=== PATIENT | male | born 1995 | race Caucasian/White ===

== ENCOUNTER 2017-01-07 07:19 | Emergency (ER) | payer OTHER ==
[2017-01-07 07:30] VITALS: BP 117/66
--- NOTE | 2017-01-07 08:27 | UC ---
GI Bleed HPI - HPI Summary HPI Summary: 21 yo M c/o vomiting blood twice, once on 01/04/17 and once last pm. Pt states he has had a cold and is congested. Denies abd pain. States it was bright red blood,a small amount in the vomit. States it was darker in the vomit last pm. Admits he drank alcohol on 01/04/17 and vomited the blood later. Has not had alcohol since. States he drinks alcohol approx 3 times per week, has never vomited blood before. No hx GERD. Did not realize that he has very enlarged tonsils but states he has been congested and had some trouble swallowing. Thinks he has had mono in the past. Denies epistaxis, or any blood in sputum. Not on anticoagulants. No hx bleeding disorder in himself or family members. States he has moved his bowels normally the past few days, and stool is normal color. He denies abd pain. - History Of Current Complaint Chief Complaint: UCGeneralIllness Stated Complaint: BLOOD IN VOMIT Time Seen by Provider: 01/07/17 08:06 Hx Obtained From: Patient Onset/Duration: Gradual Onset, Lasting Days, Still Present Timing: Intermittent Episodes Lasting: Severity: Hematemesis Severity Initially: Mild Severity Currently: None Pain Intensity: 0 Pain Scale Used: 0-10 Numeric Associated Pain: None Aggravating Factor(s): Other - nothing Alleviating Factor(s): Other - nothing Associated Signs And Symptoms: Positive: Other - sweats - Risk Factors GI Bleed Risk Factors: ETOH Abuse - use of ETOH, not abuse by pt's history - Allergies/Home medications Allergies/Adverse Reactions: Allergies Allergy/AdvReac Type Severity Reaction Status Date / Time No Known Allergies Allergy Verified 01/07/17 07:30 PMH/Surg Hx/FS Hx/Imm Hx Previously Healthy: Yes Endocrine History Of: Denies: Diabetes Cardiovascular History Of: Denies: Hypertension, Pacemaker/ICD GI/ History Of: Denies: Renal Disease - Surgical History Surgical History: None - Family History Known Family History: Negative: Cardiac Disease, Hypertension, Diabetes, Blood Disorder - Social History Occupation: Student Alcohol Use: Weekly Substance Use Type: None, Marijuana Substance Use Comment - Amount & Last Used: twice weekly- last used last week Smoking Status (MU): Never Smoked Tobacco Review of Systems Constitutional: Other - sweats ENT: Nasal Discharge, Other - congestion, no epistaxis Respiratory: Negative Cardiovascular: Negative Motor: Negative Musculoskeletal: Negative Neurological: Negative Psychological: Negative All Other Systems Reviewed And Are Negative: Yes Physical Exam Triage Information Reviewed: Yes Appearance: No Pain Distress, Well-Nourished, Ill-Appearing - mild Vital Signs: Initial Vital Signs Temp 99.5 F 01/07/17 07:20 Pulse 95 01/07/17 07:20 Resp 18 01/07/17 07:20 BP 117/66 01/07/17 07:20 Pulse Ox 97 01/07/17 07:20 Vital Signs Reviewed: Yes Eyes: Positive: Conjunctiva Clear ENT: Positive: Hearing grossly normal, Nasal congestion, TMs normal, Tonsillar swelling, Tonsillar exudate. Negative: Muffled/hoarse voice Neck: Positive: Supple, Nontender, Enlarged Nodes @ - ant cervical Respiratory: Positive: Lungs clear, Normal breath sounds, No respiratory distress Cardiovascular: Positive: RRR, No Murmur, Pulses Normal, Brisk Capillary Refill Abdomen Description: Positive: Nontender, No Organomegaly, Soft. Negative: Bruit, CVA Tenderness (R), CVA Tenderness (L), Distended, Guarding, Hepatomegaly , McBurney's Point Tenderness, Peritoneal Signs, Pulsatile Mass, Splenomegaly Bowel Sounds: Positive: Present Musculoskeletal: Positive: Strength Intact, ROM Intact Neurological: Positive: Alert, Muscle Tone Normal Psychological Exam: Normal Skin Exam: Normal Bleed Course/Dx - Course Course Of Treatment: rapid A neg. rapid influenza A and B both neg. With pt's enlarged tonsils, suspect that pt's reported blood in vomit could be from tonsillitis. With neg strep and flu and pt's hx of sweats will check mono. Will also check CBC to eval HCT and plts. Will advise pt no EtOH, and no NSAIDS and if any further vomiting to go directly to ED. Needs definite follow up with PCP within 1 week and will refer to ENT for the enlarged tonsils. - Differential Dx/Diagnosis Differential Diagnosis/HQI/PQRI: Esophagitis, Gastritis, Other - tonsillitis Provider Diagnoses: tonsillitis. hemetemesis by history Discharge - Discharge Plan Condition: Stable Disposition: HOME Prescriptions: Pantoprazole TAB (NF) [Protonix TAB (NF)] 40 mg PO DAILY #10 tab Patient Education Materials: Gastrointestinal Bleeding (ED), Tonsillitis (ED) Forms: *Gen. Provider Communication Referrals: Juancho Sullivan MD [Medical Doctor] - 1 Week No Primary Care Phys,NOPCP [Primary Care Provider] - Additional Instructions: Dr. Bermudez recommends that you get established with a primary care doctor. Your flu and strep are negative as possible causes for your enlarged tonsils. We are testing you for mono. We will notify you if that result is positive. You need definite follow up with the ENT specialist. Dr. Sullivan is cotton weigher. Call [phone] today to be seen within one week. Do not drink alcohol and do not take ibuprofen or aleve until your symptoms resolve. The medication protonix may help with any possible stomach bleeding. Go directly to an emergency room if you have further episodes of vomiting or any new or worsening symptoms.
[2017-01-07] MEDS ORDERED: Acetaminophen ADULT LIQ* 650 MG/20.3 ML UDC PO ONE (08:41)
[2017-01-07 12:44] LABS: EBV Response YES
[2017-01-07 12:49] LABS: Hematocrit 41 % (42-52); Hemoglobin 14.3 g/dl (14.0-18.0); Mean Corpuscular HGB Conc 35 g/dl (31-36); Mean Corpuscular Hemoglobin 29 pg (27-31); Mean Corpuscular Volume 84 fL (80-94); Mean Platelet Volume 10 um3 (7.4-10.4); Red Blood Count 4.94 10^6/ul (4.0-5.4); Red Cell Distribution Width 13 % (10.5-15)
[2017-01-07 12:53] LABS: Mono Internal Control QC Line Present
[2017-01-07 12:54] LABS: Manual Entry Verification GRE0060
[2017-01-08 11:39] LABS: EBV Capsid Ag IgG Ab Positive (Negative); EBV Capsid Ag IgM Ab Positive (Negative)
== END 2017-01-07 09:46 | disposition home or self-care (01) ==
LOC: UCCORT 07:19
DX: J03.90 Acute tonsillitis, unspecified (principal); K92.0 Hematemesis
CPT/HCPCS: 36415; 85025; 86308; 86664; 86665; 87502; 87651; 99212; A9270-GY; G0463

== ENCOUNTER 2017-11-16 07:17 | Emergency (ER) | payer OTHER ==
[2017-11-16 07:38] VITALS: BP 114/68
--- NOTE | 2017-11-16 07:50 | UC ---
Throat Pain/Nasal Imtiaz HPI - HPI Summary HPI Summary: sore throat x 2 days + fever, chills, no cough, no runny nose or nasal congestion + body aches - History of Current Complaint Chief Complaint: UCRespiratory Stated Complaint: SORE THROAT,WEAK Time Seen by Provider: 11/16/17 07:36 Hx Obtained From: Patient Onset/Duration: Gradual Onset, Lasting Days - 2, Still Present Severity: Moderate Pain Intensity: 6 Cough: None Associated Signs & Symptoms: Positive: Fever. Negative: FB Sensation, Drooling , Sinus Discomfort, Nasal Discharge, Rash - Allergies/Home Medications Allergies/Adverse Reactions: Allergies Allergy/AdvReac Type Severity Reaction Status Date / Time No Known Allergies Allergy Verified 11/16/17 07:30 Home Medications: Home Medications Ibuprofen TAB* [Advil TAB*] 400 mg PO Q6H PRN 11/16/17 [History Confirmed ] PMH/Surg Hx/FS Hx/Imm Hx Previously Healthy: Yes - Surgical History Surgical History: None - Family History Known Family History: Negative: Cardiac Disease, Hypertension, Diabetes, Blood Disorder - Social History Alcohol Use: Weekly Substance Use Type: None Substance Use Comment - Amount & Last Used: twice weekly- last used last week Smoking Status (MU): Never Smoked Tobacco Review of Systems Constitutional: Fever, Chills, Fatigue Skin: Negative Eyes: Negative ENT: Sore Throat Respiratory: Negative Cardiovascular: Negative Gastrointestinal: Negative Is Patient Immunocompromised?: No All Other Systems Reviewed And Are Negative: Yes Physical Exam Triage Information Reviewed: Yes Appearance: Well-Appearing, No Pain Distress, Well-Nourished Vital Signs: Initial Vital Signs Temp 99.3 F 11/16/17 07:32 Pulse 59 11/16/17 07:32 Resp 20 11/16/17 07:32 BP 114/68 11/16/17 07:32 Pulse Ox 98 11/16/17 07:32 Vital Signs Reviewed: Yes Eyes: Positive: Conjunctiva Clear ENT: Positive: Normal ENT inspection, Hearing grossly normal, Pharyngeal erythema, TMs normal, Tonsillar swelling. Negative: Nasal congestion, Nasal drainage, Tonsillar exudate, Trismus, Muffled voice Neck exam: Normal Neck: Positive: Supple, Tenderness @, Enlarged Nodes @ Respiratory: Positive: Chest non-tender, Lungs clear, Normal breath sounds, No respiratory distress Cardiovascular: Positive: RRR, No Murmur, Pulses Normal, Brisk Capillary Refill Abdomen Description: Positive: Nontender, No Organomegaly, Soft Bowel Sounds: Positive: Present Skin Exam: Normal Throat Pain/Nasal Course/Dx - Differential Dx/Diagnosis Provider Diagnoses: pharyngitis Discharge - Discharge Plan Condition: Stable Disposition: HOME Prescriptions: Amoxicillin PO (*) [Amoxicillin 875 MG (*)] 875 mg PO BID #20 tab Forms: *School Release Referrals: No Primary Care Phys,NOPCP [Primary Care Provider] -
== END 2017-11-16 08:15 | disposition home or self-care (01) ==
LOC: UCCORT 07:17
DX: J02.9 Acute pharyngitis, unspecified (principal)
CPT/HCPCS: 87651; 99212; G0463